=== PATIENT | female | born 1990 | race Caucasian/White ===

== ENCOUNTER 2016-09-18 18:16 | Outpatient (CLI) | payer OTHER ==
[~2016-09-18] VITALS: Ht 162.6 cm; Wt 78.0 kg
[2016-09-18 18:29] VITALS: BP 118/78
== END 2016-09-18 19:22 | disposition home or self-care (01) ==
LOC: M LDO 18:16
PROVIDERS: ATTEND Obstetrics & Gynecology
DX: O26.893 Other specified pregnancy related conditions, third trimester (principal); N89.8 Other specified noninflammatory disorders of vagina; Z3A.38 38 weeks gestation of pregnancy; Z88.0 Allergy status to penicillin

== ENCOUNTER 2016-09-21 06:58 | Inpatient (IN) | payer OTHER ==
[2016-09-21] VITALS (8 sets, daily range): BP systolic 94–152; BP diastolic 56–82
[~2016-09-21] VITALS: Ht 162.6 cm; Wt 81.0 kg
[2016-09-21] MEDS ORDERED: BICITRA 30ML SOLN UDC PO ONE (07:15)
[2016-09-21] MEDS ORDERED: GENTAMICIN SULFATE 80 MG in APPROPRIATE DILUENT 1 EA IV ONE (07:15)
[2016-09-21] MEDS ORDERED: LR 1,000 ML IV SCH (07:15)
[2016-09-21] MEDS ORDERED: PRENTAB9 PO (07:29)
[2016-09-21 07:43] LABS: MEAN CORPUSCULAR HEMOGLOBIN 29.7 pg (27.0-33.0); MEAN CORPUSCULAR HGB CONC 33.4 g/dl (32.0-36.5); RED CELL DISTRIBUTION WIDTH 13.8 % (11.5-14.5); WHITE BLOOD COUNT 7.7 K/mm3 (4.0-10.0)
[2016-09-21] MEDS ORDERED: LACTATED RINGER'S 1000 ML IV ONE (08:00)
[2016-09-21] MEDS ORDERED: CLINDAMYCIN 900 MG in APPROPRIATE DILUENT 1 EA IV ONE (08:15)
[2016-09-21] MEDS ORDERED: NALBUPHINE HCL 10 MG/ML AMP (J2300) IV PRN (09:15)
[2016-09-21] MEDS ORDERED: METOCLOPRAMIDE INJ 10MG/2ML VIAL (J2765) IV PRN (09:15)
[2016-09-21] MEDS ORDERED: ONDANSETRON 4MG/2ML VIAL (J2405) IV PRN ×2 (09:15→10:15)
[2016-09-21] MEDS ORDERED: NALOXONE INJ 0.4 MG/1 ML VIAL (J2310) IV PRN ×2 (09:15)
[2016-09-21] MEDS ORDERED: MORPHINE PRES-FREE INJ 10 MG/10 ML VIAL (J2274) As Ordered ONE (09:24)
[2016-09-21] MEDS ORDERED: OXYTOCIN INJ 10 UNITS/ML VIAL (J2590) As Ordered ONE (09:24)
[2016-09-21] MEDS ORDERED: KETOROLAC 60 MG/2 ML VIAL (J1885) As Ordered ONE (09:55)
[2016-09-21] MEDS ORDERED: PROMETHAZINE 25 MG TAB PO PRN (10:15)
[2016-09-21] MEDS ORDERED: METHYLERGONOVINE MALEATE 0.2 MG/ML VIAL (J2210) IM PRN (10:15)
[2016-09-21] MEDS ORDERED: PERCOCET 5MG/325MG TAB PO PRN ×2 (10:15)
[2016-09-21] MEDS ORDERED: RHOGAM 300 MCG (1500 IU) INJ (J2790) IM SCH (10:15)
[2016-09-21] MEDS ORDERED: MEASLES,MUMPS,RUBELLA VACCINE INJ (MMR-II) (90707) SC SCH (10:15)
[2016-09-21] MEDS: LR 1,000 ML IV SCH ×2 (13:58→19:00)
[2016-09-21] MEDS: KETOROLAC 30 MG/ML VIAL (J1885) IV SCH ×2 (17:25→23:00)
[2016-09-21] MEDS: DOCUSATE SODIUM 100 MG CAP PO SCH (21:22)
[2016-09-22] VITALS (7 sets, daily range): BP systolic 92–151; BP diastolic 51–110
[2016-09-22] MEDS: LR 1,000 ML IV SCH (02:13)
[2016-09-22] MEDS: KETOROLAC 30 MG/ML VIAL (J1885) IV SCH ×2 (04:55→11:13)
[2016-09-22 07:09] LABS: MEAN CORPUSCULAR HEMOGLOBIN 30.8 pg (27.0-33.0); MEAN CORPUSCULAR VOLUME 88.2 fl (80.0-96.0); WHITE BLOOD COUNT 7.7 K/mm3 (4.0-10.0)
[2016-09-22] MEDS: PRENATAL VITAMIN TAB PO SCH (09:19)
[2016-09-22] MEDS: DOCUSATE SODIUM 100 MG CAP PO SCH ×2 (09:20→20:15)
[2016-09-22 18:44] LABS: BASO % 0.7 % (0.0-1.0); EOS # 0.1 K/mm3 (0.0-0.50); EOS % 1.4 % (0.0-3.0); LARGE UNSTAINED CELL % 0.4 % (0.0-4.0); LYMPH # 0.6 K/mm3 (1.5-6.5); MEAN CORPUSCULAR HEMOGLOBIN 30.1 pg (27.0-33.0); MEAN CORPUSCULAR HGB CONC 34.3 g/dl (32.0-36.5); MEAN CORPUSCULAR VOLUME 87.9 fl (80.0-96.0); MONO # 0.1 K/mm3 (0.0-0.8); MONO % 1.2 % (0.0-5.0); NEUTROPHILS # 5.4 K/mm3 (1.8-7.7); NEUTROPHILS % 87.3 % (36.0-66.0); PLATELET COUNT, AUTOMATED 264 k/mm3 (150-450); RED CELL DISTRIBUTION WIDTH 13.8 % (11.5-14.5); WHITE BLOOD COUNT 6.2 K/mm3 (4.0-10.0)
[2016-09-22] MEDS: IBUPROFEN 800 MG TAB PO SCH (19:05)
[2016-09-22 19:07] LABS: ALT/SGPT 24 U/L (12-78); AST/SGOT 42 U/L (15-37); BILIRUBIN,TOTAL 0.3 MG/DL (0.2-1.0); CREATININE FOR GFR 0.89 MG/DL (0.55-1.02); GLOMERULAR FILTRATION RATE > 60.0 (>60); URIC ACID 5.1 MG/DL (2.6-6.0)
[2016-09-22] MEDS: GENTAMICIN SULFATE 80 MG in APPROPRIATE DILUENT 1 EA IV SCH (20:15)
[2016-09-22] MEDS: D5W/0.9% SODIUM CHLORIDE 1,000 ML IV SCH (20:15)
[2016-09-22] MEDS: CLINDAMYCIN 600 MG in APPROPRIATE DILUENT 1 EA IV SCH (21:39)
[2016-09-23 02:11] VITALS: BP 101/59
[2016-09-23] MEDS: IBUPROFEN 800 MG TAB PO SCH ×3 (03:45→18:08)
[2016-09-23] MEDS: D5W/0.9% SODIUM CHLORIDE 1,000 ML IV SCH ×3 (03:46→21:18)
[2016-09-23] MEDS: GENTAMICIN SULFATE 80 MG in APPROPRIATE DILUENT 1 EA IV SCH ×3 (03:46→20:00)
[2016-09-23 06:18] VITALS: BP 106/65
[2016-09-23] MEDS: DOCUSATE SODIUM 100 MG CAP PO SCH ×3 (09:00→21:19)
[2016-09-23] MEDS: PRENATAL VITAMIN TAB PO SCH (09:10)
[2016-09-23] MEDS: CLINDAMYCIN 600 MG in APPROPRIATE DILUENT 1 EA IV SCH ×2 (09:11→22:30)
[2016-09-23 10:00] VITALS: BP 111/57
[2016-09-23 14:00] VITALS: BP 103/55
[2016-09-23 18:29] VITALS: BP 131/80
[2016-09-23 22:00] VITALS: BP 119/67
[2016-09-24 01:35] VITALS: BP 139/71
[2016-09-24] MEDS: GENTAMICIN SULFATE 80 MG in APPROPRIATE DILUENT 1 EA IV SCH (03:20)
[2016-09-24] MEDS: IBUPROFEN 800 MG TAB PO SCH ×2 (03:20→11:45)
[2016-09-24 05:45] VITALS: BP 110/68
[2016-09-24] MEDS: D5W/0.9% SODIUM CHLORIDE 1,000 ML IV SCH (06:34)
[2016-09-24] MEDS: PRENATAL VITAMIN TAB PO SCH (08:56)
[2016-09-24] MEDS: CLINDAMYCIN 600 MG in APPROPRIATE DILUENT 1 EA IV SCH (08:56)
[2016-09-24] MEDS: DOCUSATE SODIUM 100 MG CAP PO SCH (08:57)
[2016-09-24 10:05] VITALS: BP 108/63
[2016-09-24] MEDS ORDERED: IBUP-1114 PO (13:16)
[2016-09-24] MEDS ORDERED: COLA100C PO (13:17)
[2016-09-24] MEDS ORDERED: OXYC1TAB23 PO (13:18)
--- NOTE | 2016-09-26 05:36 | RO ---
DATE OF PROCEDURE: 09/21/2016 PREOPERATIVE DIAGNOSES: 1. History of prior low transverse section. 2. Undesired fertility. POSTOPERATIVE DIAGNOSES: 1. History of prior low transverse section. 2. Undesired fertility. 3. Delivered. PROCEDURE: 1. Repeat low transverse section. 2. Bilateral tubal ligation with Filshie clips. SURGEON: Beatriz Rubio MD OPERATIONS LABEL CLERK: Jameson Olivarez MD ANESTHESIA: Spinal. ESTIMATED BLOOD LOSS (EBL): 600 mL. FLUIDS: 1400 mL of lactated Ringer's. URINE OUTPUT: 25 mL. CONDITION: Stable. COMPLICATIONS: None. SPECIMEN: None. ANTIBIOTICS: Gentamicin 80 mg IV times one and clindamycin 900 mg IV times one prior to skin incision. INDICATION: The patient is a 25-year-old, (G) 3, para (P) 2-0-0-2 with a history of two prior low transverse sections and undesired fertility desiring an elective repeat section in addition to bilateral tubal ligation. FINDINGS: Viable female infant. score 8 and 9. Time of 0945 hours. Weight 7 pounds 13 ounces. OPERATIVE PROCEDURE: The risks, benefits, , indications and alternatives of procedure were reviewed with the patient and informed consent was obtained. The patient was taken to the operating room where spinal anesthesia was obtained without difficulty. She was then prepped and draped in normal sterile fashion in dorsal supine position with a leftward tilt. A Pfannenstiel skin incision was then made with a scalpel and carried through to the underlying layer of fascia. The fascia was then incised in the midline and the incision extended laterally with Sauer scissors. The superior aspect of the fascial incision was then grasped with the Anne clamps, elevated and the underlying rectus muscles dissected off aided with Sauer scissors. Attention was then turned to the inferior aspect of the incision, which in a similar fashion was grasped, tented up with Anne clamps and the rectus muscles dissected off aided with Sauer scissors. Rectus muscles were then in midline. The peritoneum identified, tented up and entered digitally. The peritoneal incision was then extended horizontally with good visualization of the bladder. The bladder blade was then inserted. The vesicouterine peritoneum was then identified, grasped with pickups and entered sharply with the Metzenbaum scissors. The incision was then extended laterally and the bladder flap created digitally. Bladder blade was then reinserted. Next, the lower uterine segment was incised in a transverse fashion with the scalpel. The uterine incision was then extended manually. The amniotic sac was artificially ruptured productive of clear fluid. The 's head delivered atraumatically in occiput anterior (OA) position through the hysterotomy without difficulty. The nose and mouth were suctioned with a bulb syringe and the cord doubly clamped and cut. The infant was handed off to waiting respiratory technician. The placenta was then removed spontaneously with gentle traction on the umbilical cord. The uterus was then exteriorized and cleared of all clots and debris. Uterine incision was then impaired with #0 Vicryl in a running locked fashion. The posterior cul-de-sac was then irrigated. Attention was then turned to the right fallopian tube, which was followed out to its fimbriated end. Using a Filshie clip, it was placed approximately 2 cm distal from the cornua. The same procedure was performed on the left side. The uterus was returned to the abdomen and the hysterotomy was again noted to be hemostatic. The paracolic gutters were irrigated and cleared of all clots and debris. The fascia was then reapproximated with #0 Vicryl in a running fashion. The subcutaneous layer was then closed with #3-0 Vicryl in a running fashion. The skin was closed with #3-0 Monocryl on a Alvaro needle in a subcuticular fashion. The incision was then dressed with Steri-Strips and a pressure dressing applied. At the completion of the case, bimanual exam performed with good uterine tone and minimal vaginal bleeding. The patient tolerated the procedure well. Sponge, lap and needle counts were correct times three. The patient was taken to the recovery room in stable condition.
== END 2016-09-24 13:40 | disposition home or self-care (01) | DRG 766 ==
LOC: M LDI 06:58 → M OBS 12:28
PROVIDERS: ADMIT Obstetrics & Gynecology; ATTEND Obstetrics & Gynecology
PROC: 0UL70DZ Occlusion of Bilateral Fallopian Tubes with Intraluminal Device, Open Approach (ICD-10-PCS; 2016-09-21)
PROC: 10D00Z1 Extraction of Products of Conception, Low, Open Approach (ICD-10-PCS; principal; 2016-09-21 07:30)
DX: O34.211 Maternal care for low transverse scar from previous cesarean delivery (principal); Z37.0 Single live birth; Z3A.39 39 weeks gestation of pregnancy; Z30.2 Encounter for sterilization